=== PATIENT | female | born 1950 | race Caucasian/White ===

== ENCOUNTER 2018-01-15 06:12 | Outpatient (CLI) | payer OTHER ==
[~2018-01-15] VITALS: Ht 157.5 cm; Wt 113.4 kg
[2018-01-15] MEDS ORDERED: FLUO20CA42 PO (14:51)
[2018-01-15] MEDS ORDERED: LEVO100T7 PO (14:51)
== END 2018-01-15 14:52 ==
LOC: PREOP 06:12
PROVIDERS: ATTEND Surgery
DX: Z01.818 Encounter for other preprocedural examination (principal); R19.5 Other fecal abnormalities

== ENCOUNTER 2018-01-22 09:51 | Day surgery (SDC) | payer MEDICARE ==
[~2018-01-22] VITALS: Ht 157.5 cm; Wt 113.4 kg
[~2018-01-22 09:51] MED LIST: FLUO20CA42 PO; LEVO100T7 PO
--- OUTSIDE RECORDS SUMMARY | 2018-01-22 09:56 | XMS REPORT ---
Author Author PAIGE SWARTZ [facility] eClinicalWorks Address Unknown Phone Unavailable Care Team Providers Care Plant And Machinery Valuer Name Role Phone PAIGE SWARTZ CP Unavailable Allergies, Adverse Reactions, Alerts Substance Reaction Event Type N.K.D.A. 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 [address]-14 325 mg January 15, 2013 take 1 tablet ( 325 mg) by oral route once daily B Complex-Vitamin B12 NDC 0 Sep 03, 2012 1 Tablet 1 [place] [address] 1,000 mg Sep 03, 2012 1 Capsule 1 time per day levothyroxine ND 0 100 mcg Dec 05, 2014 1 tablet by Oral route 1 time per day Will need redrawn in January Procedures Procedure Coding System Code Date ZOSTER (ZOSTAVAX) CPT-4 97623 Aug 10, 2015 SINGLE IMMUNIZATION ADMIN CPT-4 62553 Aug 10, 2015 Office Visit, Est Pt., Level 3 CPT-4 69469 Aug 10, 2015 Vital Signs Date/Time: Aug 10, 2015 Temperature 97.4 F Weight 155.3 lbs Height 54 in BMI 37.44 Index Blood Pressure Diastolic 92 mmHg Blood Pressure Systolic 158 mmHg Cardiac Monitoring Heart Rate 80 bpm Results No Known Results Immunizations Vaccine Administration Date ZOSTER (ZOSTAVAX) Aug 10, 2015 Summary Purpose eClinicalWorks Submission
--- OUTSIDE RECORDS SUMMARY | 2018-01-22 09:56 | XMS REPORT ---
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 Problem Acquired hypothyroidism E03.9 Active 253690554 Problem Overweight 278.02 Active 036238710 ALLERGIES No Information SOCIAL HISTORY Never Assessed PLAN OF CARE VITAL SIGNS MEDICATIONS Unknown Medications RESULTS No Results PROCEDURES No Known procedures IMMUNIZATIONS No Known Immunizations MEDICAL (GENERAL) HISTORY Type Description Date Medical History Hypothryroidism Medical History Depression Surgical History hysterectomy Surgical History tumor removed from gland on left side of the neck Surgical History mini LAP Surgical History cyst removed from tailbone Hospitalization History surgeries Hospitalization History childbirth x 2
--- OUTSIDE RECORDS SUMMARY | 2018-01-22 09:56 | XMS REPORT ---
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 Problem Acquired hypothyroidism E03.9 Active Assessment Acquired hypothyroidism E03.9 Active Assessment Other iron deficiency anemia D50.8 Active Problem Overweight 278.02 Active Problem Dysthymic disorder 300.4 Active Medications No Known Medications Procedures Procedure Coding System Code Date COMPLETE CBC W/AUTO DIFF WBC CPT-4 93055 Dec 04, 2015 LIPID PANEL CPT-4 98590 Dec 04, 2015 ASSAY THYROID STIM HORMONE CPT-4 01430 Dec 04, 2015 VENIPUNCT, ROUTINE* CPT-4 15851 Dec 04, 2015 COMPREHEN METABOLIC PANEL CPT-4 84414 Dec 04, 2015 Results Name Result Date Reference Range Unit Abnormality Flag ROUTINE VENIPUNCTURE Summary Purpose eClinicalWorks Submission
--- OUTSIDE RECORDS SUMMARY | 2018-01-22 09:56 | XMS REPORT ---
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 Problem Left sciatic nerve pain M54.32 Active 12282009 Problem Dysthymia F34.1 Active 69131630 Problem Overweight 278.02 Active 762212972 Problem Dysthymic disorder 300.4 Active 41029154 Problem Other iron deficiency anemia D50.8 Active 81478405 Problem Acquired hypothyroidism E03.9 Active 149575646 ALLERGIES No Information ENCOUNTERS Encounter Location Date Diagnosis [facility] [id number] [place] [address] 58607- 8439 Nov, Acquired hypothyroidism E03.9 ; Encounter for immunization Z23 ; Other iron deficiency anemia D50.8 ; Colon cancer screening Z12.11 and Left sciatic nerve pain M54.32 [facility] [id number] [place] [address] 01640- 0844 Aug, Acquired hypothyroidism E03.9 [facility] [id number] [place] [address] 78414- 3347 May, Acquired hypothyroidism E03.9 [facility] [id number] [place] [address] 34501- 9428 May, Acquired hypothyroidism E03.9 [facility] [id number] [place] [address] 14776- 7589 Mar, Acquired hypothyroidism E03.9 [facility] [address] [place] [address] [id number] Mar, 2017 Dental examination Z01.20 and Dental caries K02.9 [facility] [address] [place] [address] 70926- 8577 Mar, Acquired hypothyroidism E03.9 [facility] [id number] [place] [address] 56348- 3740 Dec, [facility] [id number] [place] [address] 33905- 5128 Dec, Acquired hypothyroidism E03.9 [facility] [id number] [place] [address] 10790- 8158 Dec, Acquired hypothyroidism E03.9 [facility] [id number] [place] [address] 79047- 8413 Nov, [facility] [id number] [place] [address] 35168- 9256 Oct, Acquired hypothyroidism E03.9 [facility] [id number] [place] [address] 12969- 0639 Oct, Dysthymia F34.1 ; Acquired hypothyroidism E03.9 ; Other iron deficiency anemia D50.8 and Screening, lipid Z13.220 [facility] [id number] [place] [address] 89309- 5996 Jul, Breast cancer screening Z12.39 and Encounter for immunization Z23 [facility] [id number] [place] [address] 43971- 5066 Jun, Dysthymia F34.1 and Breast cancer screening Z12.39 [facility] [id number] [place] [address] 35780- 8600 May, Dysthymia F34.1 and Acquired hypothyroidism E03.9 [facility] [id number] [place] [address] 71304- 5477 May, [facility] [id number] [place] [address] 09681- 8802 Nov, [facility] [id number] [address]145 05 Nov, 2015 Acquired hypothyroidism E03.9 ; Other iron deficiency anemia D50.8 and Screening, lipid Z13.220 [facility] [address] [id number] Oct, Dental examination Z01.20 and Dental caries K02.9 [facility] [address] [place] [address] 27803- 1401 Oct, Acquired hypothyroidism E03.9 ; Other iron deficiency anemia D50.8 and Screening, lipid Z13.220 [facility] [id number] [place] [address] 39300- 6786 Jul, Breast cancer screening Z12.39 and Need for shingles vaccine Z23 [facility] [address] [place] [address] 85013- 2804 Jan, [facility] [id number] [place] [address] 61664- 1937 Jan, [facility] [address] [place] [address] 65305- 9791 Nov, [facility] [address] [place] [address] 17567- 8992 Nov, [facility] [address] [address] 5659 Oct, [facility] [address] [place] [address] 39413- 6511 Oct, [facility] [address] [place] [address] 66331- 6374 Oct, [facility] [id number] [place] [address] 41137- 7574 Oct, [facility] [address] [address] Sep, [facility] [id number] [place] [address] 03932- 8107 Sep, [facility] [place] [facility] [address] [id number] [place] [address]- 6283 Sep, [facility] [place] [facility] [address] [id number] [place] [address]- 0723 Sep, [facility] [place] [facility] [address] [facility] [id number] [place] [address]- 9678 Sep, [facility] [place] [facility] [address] [id number] [place] [address]- 4506 Sep, [facility] [place] [facility] [address] [id number] [place] [address]- 7850 Aug, [facility] [place] [facility] [address] [id number] [place] [address]- 6013 Aug, [facility] [place] [facility] [address] [facility] [id number] [place] [address]- 0571 Jun, [facility] [place] [facility] [address] [id number] [place] [address]- 2387 Jun, [facility] [place] [facility] [address] [facility] [id number] [place] [address]- 1273 May, [facility] [place] [facility] [address] [facility] [id number] [place] [address]- 4000 May, [facility] [place] [facility] [address] [id number] [place] [address]- 6950 Apr, [facility] [place] [facility] [address] [id number] [place] [address]- 8272 Apr, [facility] [place] [facility] [address] [id number] [place] [address]- 4123 Apr, [facility] [place] [facility] [address] [id number] [place] [address]- 4609 Apr, [facility] [place] [facility] [address] [facility] [id number] [place] [address]- 6083 Mar, [facility] [place] [facility] [address] [id number] [place] [address]- 3118 Mar, [facility] [place] [facility] [address] [id number] [place] [address]- 2679 Jan, [facility] [place] [facility] [address] [id number] [place] [address]- 5434 Jan, [facility] [place] [facility] [address] [id number] [place] [address]- 3213 Jan, [facility] [place] [facility] [address] [id number] [place] [address]- 1777 Jan, [facility] [place] [facility] [address] [id number] [place] [address]- 4410 Jan, [facility] [place] [facility] [address] [id number] [place] [address]- 7802 Jan, [facility] [place] [facility] [address] [id number] [place] [address]- 3338 Dec, [facility] [place] [facility] [address] [id number] [place] [address]- 4407 Dec, [facility] [place] [facility] [address] [id number] [place] [address]- 3938 Sep, [facility] [place] [facility] [address] [id number] [place] [address]- 1226 Sep, [facility] [place] [facility] [address] [id number] [place] [address]- 5655 Aug, [facility] [place] [facility] [address] [id number] [place] [address]- 8326 Aug, [facility] [place] [facility] [address] [id number] [place] [address]- 1552 Aug, [facility] [place] [facility] [address] [id number] [place] [address]- 7037 Aug, [facility] [place] [facility] [address] [id number] [place] [address]- 6157 May, [facility] [place] [facility] [address] [id number] [place] [address]- 7966 Apr, [facility] [place] [facility] [address] [id number] [place] [address]- 6715 Apr, [facility] [place] [facility] [address] [id number] [place] [address]- 4789 Apr, [facility] [place] [facility] [address] [id number] [place] [address]- 8747 Dec, [facility] [place] [facility] [address] [id number] [place] [address]- 4091 Dec, [facility] [place] [facility] [address] [id number] [place] [address]- 9222 Oct, [facility] [place] [facility] [address] [id number] [place] [address]- 2651 Sep, [facility] [place] [facility] [address] [id number] [place] [address]- 4946 Sep, [facility] [place] [facility] [address] [id number] [place] [address]- 1234 Sep, [facility] [place] [facility] [address] [id number] [place] [address]- 5873 Sep, [facility] [place] [facility] [address] [id number] [place] [address]- 7233 Aug, [facility] [place] [facility] [address] [id number] [address]- 9450 Aug, [facility] [place] [facility] [address] [id number] [place] [address]- 0094 Aug, [facility] [place] [facility] [address] [id number] [place] [address]- 9779 Aug, [facility] [place] [facility] [address] [id number] [place] [address]- 6496 Jul, [facility] [place] [facility] [address] [address]- 6560 Jul, [facility] [address] [address]- 4761 Jul, [facility] [address] [address]- 4696 Jul, [facility] [address] [place] [address]- 7902 Jul, [facility] [address] [address]- 9128 Jun, [facility] [address] [place] [address] 44250- 6227 Mar, [facility] [id number] [place] [address] 81075- 5956 Mar, [facility] [address] [place] [address] 61764- 3680 Jan, [facility] [address], [place] [address]- 6424 Jan, [facility] [id number] [place] [address] 48700- 3726 Nov, [facility] [address] [address]- 0029 Nov, [facility] [address] [address]- 3616 Nov, [facility] [address] [place] [address]- 4957 Dec, IMMUNIZATIONS No Known Immunizations SOCIAL HISTORY Never Assessed REASON FOR VISIT Lab (walk-in) [facility] PLAN OF CARE VITAL SIGNS MEDICATIONS No Known Medications RESULTS Name Result Date Reference Range TSH 2017-04-07 TSH 13.200 0.450-4.500 PROCEDURES Procedure Date Ordered Result Body Site ASSAY THYROID STIM HORMONE April 07, 2017 VENIPUNCT, ROUTINE* April 07, 2017 INSTRUCTIONS MEDICATIONS ADMINISTERED No Known Medications MEDICAL (GENERAL) HISTORY Type Description Date Medical History Hypothryroidism Medical History Depression Surgical History hysterectomy Surgical History tumor removed from gland on left side of the neck Surgical History mini LAP Surgical History cyst removed from tailbone Hospitalization History surgeries Hospitalization History childbirth x 2
--- OUTSIDE RECORDS SUMMARY | 2018-01-22 09:56 | XMS REPORT ---
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
--- OUTSIDE RECORDS SUMMARY | 2018-01-22 09:56 | XMS REPORT ---
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 Unknown Non Drug Allergy Oct, Unknown SOCIAL HISTORY No smoking Hx information available PLAN OF CARE Activity Details Follow Up 1 Year Reason:mammogram VITAL SIGNS Height 54 in 2016-11-07 Weight 155.8 lbs 2016-11-07 Temperature 98.0 degrees Fahrenheit 2016-11-07 Heart Rate 66 bpm 2016-11-07 Respiratory Rate 20 2016-11-07 BMI 37.56 kg/m2 2016-11-07 Blood pressure systolic 130 mmHg 2016-11-07 Blood pressure diastolic 72 mmHg 2016-11-07 MEDICATIONS Medication Instructions Dosage Frequency Start Date End Date Duration Status Garlic 1,000 mg 1 Capsule 1 time per day Aug, Active Fish Oil Active Aspirin 325 mg take 1 tablet (325 mg) by oral route once daily Dec, Active Levothyroxine Sodium 100 MCG Orally Once a day 1 tablet 24h Nov, Active B Complex-Vitamin B12 1 Tablet 1 time per day Aug, Active Iron 325 (65 Fe) MG Orally Once a day 1 tablet 24h Active Prozac 20 mg Orally Once a day 1 capsule in the morning 24h May, Active Calcium + D 315-200 MG-UNIT Orally Twice a day 1 tablet with meals 12h Active RESULTS Name Result Date Reference Range TSH 2016-11-07 TSH 0.384 0.450-4.500 CBC 2016-11-07 WBC 4.7 3.4-10.8 RBC 4.66 3.77-5.28 Hemoglobin 14.1 11.1-15.9 Hematocrit 42.9 34.0-46.6 MCV 92 79-97 MCH 30.3 26.6-33.0 MCHC 32.9 31.5-35.7 RDW 14.0 12.3-15.4 Platelets 235 150-379 Neutrophils 58 Lymphs 32 Monocytes 8 Eos 2 Basos 0 Neutrophils (Absolute) 2.7 1.4-7.0 Lymphs (Absolute) 1.5 0.7-3.1 Monocytes(Absolute) 0.4 0.1-0.9 Eos (Absolute) 0.1 0.0-0.4 Baso (Absolute) 0.0 0.0-0.2 Immature Granulocytes 0 Immature Grans (Abs) 0.0 0.0-0.1 LIPID PANEL 2016-11-07 Cholesterol, Total 191 100-199 Triglycerides 91 0-149 HDL Cholesterol 59 >39 VLDL Cholesterol Devante 18 5-40 LDL Cholesterol Calc 114 0-99 CMP 2016-11-07 Glucose, Serum 102 65-99 BUN 11 8-27 Creatinine, Serum 0.57 0.57-1.00 eGFR If NonAfricn Am 99 >59 eGFR If Africn Am 114 >59 BUN/Creatinine Ratio 19 11-26 Sodium, Serum 140 134-144 Potassium, Serum 4.7 3.5-5.2 Chloride, Serum 100 96-106 Carbon Dioxide, Total 23 18-29 Calcium, Serum 9.3 8.7-10.3 Protein, Total, Serum 6.5 6.0-8.5 Albumin, Serum 4.2 3.6-4.8 Globulin, Total 2.3 1.5-4.5 A/G Ratio 1.8 1.1-2.5 Bilirubin, Total 0.2 0.0-1.2 Alkaline Phosphatase, S 59 39-117 AST (SGOT) 14 0-40 ALT (SGPT) 10 0-32 PROCEDURES Procedure Date Ordered Related Diagnosis Body Site ASSAY THYROID STIM HORMONE Nov 07, 2016 COMPLETE CBC W/AUTO DIFF WBC Nov 07, 2016 LIPID PANEL Nov 07, 2016 COMPREHEN METABOLIC PANEL Nov 07, 2016 Office Visit, Est Pt., Level 3 Nov 07, 2016 VENIPUNCT, ROUTINE* Nov 07, 2016 IMMUNIZATIONS No Known Immunizations
--- OUTSIDE RECORDS SUMMARY | 2018-01-22 09:56 | XMS REPORT ---
Author Author PAIGE SWARTZ [facility] eClinicalWorks Address Unknown Phone Unavailable Care Team Providers Care Manager Post Name Role Phone PAIGE SWARTZ CP Unavailable Allergies, Adverse Reactions, Alerts Substance Reaction Event Type N.K.D.A. 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 Problem Acquired hypothyroidism E03.9 Active Assessment Dysthymia F34.1 Active Assessment Breast cancer screening Z12.39 Active Problem Overweight 278.02 Active Problem Dysthymic disorder 300.4 Active Medications Medication Code System Code Instructions Start Date End Date Status Dosage B Complex-Vitamin B12 [facility] 0 Sep 03, 2012 1 Tablet 1 time per day Garlic [facility] [address] 1,000 mg Sep 03, 2012 1 Capsule 1 time per day Prozac [facility] [address]-64 20 mg Orally Once a day Jun 20, 2016 1 capsule in the morning Iron [facility] [address] 325 (65 Fe) MG Orally Once a day 1 tablet Calcium + D [facility] [address]472 315-200 MG-UNIT Orally Twice a day 1 tablet with meals Levothyroxine Sodium [facility] [address]-37 100 MCG Orally Once a day Dec 08, 2015 1 tablet Aspirin [facility] [address]-39 325 mg January 15, 2013 take 1 tablet ( 325 mg) by oral route once daily Fish Oil [facility] [address]-60 not defined Procedures Procedure Coding System Code Date Office Visit, Est Pt., Level 3 CPT-4 73041 Jul 21, 2016 Vital Signs Date/Time: Jul 21, 2016 Cardiac Monitoring Heart Rate 72 bpm Weight 156.2 lbs Height 54 in BMI 37.66 Index Blood Pressure Diastolic 70 mmHg Blood Pressure Systolic 140 mmHg Results No Known Results Summary Purpose eClinicalWorks Submission
--- OUTSIDE RECORDS SUMMARY | 2018-01-22 09:56 | XMS REPORT ---
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 Problem Acquired hypothyroidism E03.9 Active 312959925 Problem Overweight 278.02 Active 068857155 ALLERGIES No Information SOCIAL HISTORY Never Assessed PLAN OF CARE VITAL SIGNS MEDICATIONS Unknown Medications RESULTS Name Result Date Reference Range TSH 2017-01-02 TSH 5.020 0.450-4.500 PROCEDURES Procedure Date Ordered Result Body Site ASSAY THYROID STIM HORMONE January 02, 2017 VENIPUNCT, ROUTINE* January 02, 2017 IMMUNIZATIONS No Known Immunizations MEDICAL (GENERAL) HISTORY Type Description Date Medical History Hypothryroidism Medical History Depression Surgical History hysterectomy Surgical History tumor removed from gland on left side of the neck Surgical History mini LAP Surgical History cyst removed from tailbone Hospitalization History surgeries Hospitalization History childbirth x 2
--- OUTSIDE RECORDS SUMMARY | 2018-01-22 09:57 | XMS REPORT ---
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 Problem Left sciatic nerve pain M54.32 Active 93641692 Problem Dysthymia F34.1 Active 04113549 Problem Overweight 278.02 Active 658132738 Problem Dysthymic disorder 300.4 Active 66296911 Problem Other iron deficiency anemia D50.8 Active 46445631 Problem Acquired hypothyroidism E03.9 Active 235661637 ALLERGIES No Known Allergies ENCOUNTERS Encounter Location Date Diagnosis [facility] [address] [address] 05 Nov, 2017 Acquired hypothyroidism E03.9 ; Encounter for immunization Z23 ; Other iron deficiency anemia D50.8 ; Colon cancer screening Z12.11 and Left sciatic nerve pain M54.32 [facility] [id number] [place] [address] Aug, Acquired hypothyroidism E03.9 [facility] [id number] [place] [address]65[address]- 9529 May, Acquired hypothyroidism E03.9 [facility] [id number] [place] [address] 80357- 5283 May, Acquired hypothyroidism E03.9 [facility] [address] [address] Mar, Acquired hypothyroidism E03.9 [facility] [id number] [place] [id number] Mar, 2017 Dental examination Z01.20 and Dental caries K02.9 [facility] [id number] [place] [address]- 0818 Mar, Acquired hypothyroidism E03.9 [facility] [id number] [place] [address] 17839- 2471 Dec, [facility] [id number] [place] [address]- 2610 Dec, Acquired hypothyroidism E03.9 [facility] [id number] [place] [address] 63984- 3815 Dec, Acquired hypothyroidism E03.9 [facility] [id number] [place] [address] 89923- 4693 Nov, [facility] [id number] [place] [address] 33386- 7011 Oct, Acquired hypothyroidism E03.9 [place] [facility] [id number] [place] [address]7- 4875 Oct, Dysthymia F34.1 ; Acquired hypothyroidism E03.9 ; Other iron deficiency anemia D50.8 and Screening, lipid Z13.220 [facility] [facility] [id number] [place] [address] 84784- 5754 Jul, Breast cancer screening Z12.39 and Encounter for immunization Z23 [facility] [facility] [id number] [place] [address] 44077- 5537 Jun, Dysthymia F34.1 and Breast cancer screening Z12.39 [facility] [facility] [id number] [place] [address] 56414- 3280 May, Dysthymia F34.1 and Acquired hypothyroidism E03.9 [facility] [facility] [id number] [place] [address] 20729- 6445 May, [facility] [id number] [place] [address] 12570- 9276 Nov, [facility] [id number] [place] [address] 97192- 5399 05 Nov, 2015 Acquired hypothyroidism E03.9 ; Other iron deficiency anemia D50.8 and Screening, lipid Z13.220 [facility] [address] [id number] Oct, Dental examination Z01.20 and Dental caries K02.9 [facility] [address] [address] Oct, Acquired hypothyroidism E03.9 ; Other iron deficiency anemia D50.8 and Screening, lipid Z13.220 [facility] [id number] [place] [address] 28878- 8685 Jul, Breast cancer screening Z12.39 and Need for shingles vaccine Z23 [facility] [address] [place] [address] 77200- 9641 Jan, [facility] [id number] [place] [address] 77805- 6381 Jan, [facility] [address] [place] [address] 31851- 2613 Nov, [facility] [address] [place] [address] 35644- 0561 Nov, [facility] [address] [address] Oct, [facility] [id number] [place] [address] 60092- 7798 Oct, [facility] [address] [place] [address] 17700- 9700 Oct, [facility] [address] [place] [address] 74355- 6695 Oct, [facility] [address] [address] Sep, [facility] [address] [place] [address] [id number]- 2675 Sep, [facility] [place] [facility] [address] [id number] [place] [address] 0147 Sep, [facility] [place] [facility] [address] [id number] [place] [address]- 6402 Sep, [facility] [place] [facility] [address] [id number] [place] [address]- 7213 Sep, [facility] [place] [facility] [address] [id number] [place] [address]- 5997 Sep, [facility] [place] [facility] [address] [id number] [place] [address]- 9701 Aug, [facility] [place] [facility] [address] [id number] [place] [address]- 3175 Aug, [facility] [place] [facility] [address] [id number] [place] [address]- 4624 Jun, [facility] [place] [facility] [address] [id number] [place] [address]- 9033 Jun, [facility] [place] [facility] [address] [id number] [place] [address]- 4696 May, [facility] [place] [facility] [address] [id number] [place] [address] 1960 May, [facility] [place] [facility] [address] [id number] [place] [address]- 0644 Apr, [facility] [place] [facility] [address] [id number] [place] [address]- 0701 Apr, [facility] [place] [facility] [address] [id number] [place] [address]- 9291 Apr, [facility] [place] [facility] [address] [id number] [place] [address]- 5057 Apr, [facility] [place] [facility] [address] [id number] [place] [address]- 8413 Mar, [facility] [place] [facility] [address] [id number] [place] [address]- 2346 Mar, [facility] [place] [facility] [address] [id number] [place] [address]- 9943 Jan, [facility] [place] [facility] [address] [id number] [place] [address]- 1066 Jan, [facility] [place] [facility] [address] [id number] [place] [address]- 5350 Jan, [facility] [place] [facility] [address] [id number] [place] [address]- 9776 Jan, [facility] [place] [facility] [address] [id number] [place] [address]- 2315 Jan, [facility] [place] [facility] [address] [id number] [place] [address]- 2335 Jan, [facility] [place] [facility] [address] [id number] [place] [address]- 2965 Dec, [facility] [place] [facility] [address] [id number] [place] [address]- 8707 Dec, [facility] [place] [facility] [address] [id number] [place] [address]- 5782 Sep, [facility] [place] [facility] [address] [id number] [place] [address]- 9667 Sep, [facility] [place] [facility] [address] [id number] [place] [address]- 5680 Aug, [facility] [place] [facility] [address] [id number] [place] [address]- 0239 Aug, [facility] [place] [facility] [address] [id number] [place] [address]- 3337 Aug, [facility] [place] [facility] [address] [id number] [place] [address]- 2395 Aug, [facility] [place] [facility] [address] [id number] [place] [address]- 3079 May, [facility] [place] [facility] [address] [id number] [place] [address]- 4214 Apr, [facility] [address] [id number] [place] [address]- 0345 Apr, [facility] [address] [id number] [place] [address]- 2633 Apr, [facility] [address] [id number] [place] [address]- 4109 Dec, [facility] [address] [id number] [place] [address]- 3423 Dec, [facility] [address] [id number] [place] [address]- 1281 Oct, [facility] [address] [id number] [place] [address]- 1876 Sep, [facility] [address] [id number] [place] [address]- 6170 Sep, [facility] [address] [id number] [place] [address]- 5426 Sep, [facility] [address] [id number] [place] [address]- 0937 Sep, [facility] [address] [facility] [id number] [place] [address]- 9189 Aug, [facility] [place] [facility] [address] [id number] [place] [address]- 1060 Aug, [facility] [address] [id number] [place] [address]- 5097 Aug, [facility] [place] [facility] [address] [id number] [place] [address]- 7909 Aug, [facility] [place] [facility] [address] [id number] [place] [address]- 7841 Jul, [facility] [place] [facility] [address] [id number] [place] [address]- 8404 Jul, [facility] [id number] [address] Jul, [facility] [address] Jul, [facility] [id number] [address]- 8339 Jul, [facility] [address] [address]- 1354 Jun, [facility] [address] [address] 5397 Mar, [facility] [address] [address]- 4886 Mar, [facility] [address] [address]- 5[address] Jan, [facility] [address] [address]- 6085 Jan, [facility] [address] [address]- 2451 Nov, [facility] [address] [address]- 5842 Nov, [facility] [address] [address]- 3606 Nov, [facility] [id number] [address]- 2342 Dec, IMMUNIZATIONS No Known Immunizations SOCIAL HISTORY Never Assessed REASON FOR VISIT [place] PLAN OF CARE Activity Details Follow Up prn Reason:jorge luis VITAL SIGNS Blood pressure systolic 142 mmHg 2017-04-07 Blood pressure diastolic 67 mmHg 2017-04-07 MEDICATIONS Medication Instructions Dosage Frequency Start Date End Date Duration Status B Complex-Vitamin B12 1 Tablet 1 time per day Aug, Active Garlic 1,000 mg 1 Capsule 1 time per day Aug, Active Aspirin 325 mg take 1 tablet (325 mg) by oral route once daily Dec, Active Calcium + D 315-200 MG-UNIT Orally Twice a day 1 tablet with meals 12h Active Fluoxetine HCl 20 MG TAKE ONE CAPSULE BY MOUTH ONCE DAILY IN THE MORNING 90 Active Levothyroxine Sodium 75 MCG Orally Once a day 1 tablet 24h Nov, 90 days Active Iron 325 (65 Fe) MG Orally Once a day 1 tablet 24h Active Fish Oil Active Prozac 20 mg Orally Once a day 1 capsule in the morning 24h May, Active RESULTS No Results PROCEDURES Procedure Date Ordered Result Body Site LTD ORAL EVALUATION - PROBLEM FOCUS April 07, 2017 INTRAORL-PERIAPICAL 1 FILM 87484 April 07, 2017 EXTRAC ERUPTED TOOTH/EXPOSED ROOT April 07, 2017 BITEWING - SINGLE FILM April 07, 2017 INSTRUCTIONS MEDICATIONS ADMINISTERED No Known Medications MEDICAL (GENERAL) HISTORY Type Description Date Medical History Hypothryroidism Medical History Depression Surgical History hysterectomy Surgical History tumor removed from gland on left side of the neck Surgical History mini LAP Surgical History cyst removed from tailbone Hospitalization History surgeries Hospitalization History childbirth x 2
--- OUTSIDE RECORDS SUMMARY | 2018-01-22 09:57 | XMS REPORT ---
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 Unknown Non Drug Allergy May, Unknown SOCIAL HISTORY No smoking Hx information available PLAN OF CARE VITAL SIGNS Height 54 in 2016-06-20 Weight 156.9 lbs 2016-06-20 Heart Rate 70 bpm 2016-06-20 Respiratory Rate 18 2016-06-20 BMI 37.83 kg/m2 2016-06-20 Blood pressure systolic 130 mmHg 2016-06-20 Blood pressure diastolic 80 mmHg 2016-06-20 MEDICATIONS Medication Instructions Dosage Frequency Start Date End Date Duration Status Prozac 20 mg Orally Once a day 1 capsule in the morning 24h May, Active B Complex-Vitamin B12 1 Tablet 1 time per day Aug, Active Levothyroxine Sodium 100 MCG Orally Once a day 1 tablet 24h Nov, Active Garlic 1,000 mg 1 Capsule 1 time per day Aug, Active Aspirin 325 mg take 1 tablet (325 mg) by oral route once daily Dec, Active Iron 325 (65 Fe) MG Orally Once a day 1 tablet 24h Active Fish Oil Active RESULTS No Results PROCEDURES Procedure Date Ordered Related Diagnosis Body Site Office Visit, Est Pt., Level 3 Jun 20, 2016 IMMUNIZATIONS No Known Immunizations
--- OUTSIDE RECORDS SUMMARY | 2018-01-22 09:57 | XMS REPORT ---
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
--- OUTSIDE RECORDS SUMMARY | 2018-01-22 09:57 | XMS REPORT ---
Author Author PAIGE SWARTZ [facility] [employer] Address Unknown Phone Unavailable Care Team Providers Care Motorcycle Police Name Role Phone PAIGE SWARTZ CP Unavailable Allergies, Adverse Reactions, Alerts Substance Reaction Event Type N.K.D.A. 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 Problem Acquired hypothyroidism E03.9 Active Assessment Breast cancer screening Z12.39 Active Assessment Encounter for immunization Z23 Active Problem Overweight 278.02 Active Problem Dysthymic disorder 300.4 Active Medications Medication Code System Code Instructions Start Date End Date Status Dosage Prozac [facility] [address]-47 20 mg Orally Once a day Jun 20, 2016 1 capsule in the morning Aspirin [facility] [address]-48 325 mg January 15, 2013 take 1 tablet ( 325 mg) by oral route once daily Levothyroxine Sodium [facility] [address]-46 100 MCG Orally Once a day Dec 08, 2015 1 tablet Calcium + D [facility] [address]179 315-200 MG-UNIT Orally Twice a day 1 tablet with meals Fish Oil [facility] [address]-08 not defined B Complex-Vitamin B12 [facility] 0 Sep 03, 2012 1 Tablet 1 time per day Garlic [facility] [address] 1,000 mg Sep 03, 2012 1 Capsule 1 time per day Procedures Procedure Coding System Code Date PCV 13 CPT-4 54026 Aug 15, 2016 SINGLE IMMUNIZATION ADMIN CPT-4 69001 Aug 15, 2016 Office Visit, Est Pt., Level 3 CPT-4 94242 Aug 15, 2016 Vital Signs Date/Time: Aug 15, 2016 Cardiac Monitoring Heart Rate 70 bpm Weight 154.1 lbs Height 54 in BMI 37.15 Index Blood Pressure Diastolic 74 mmHg Blood Pressure Systolic 136 mmHg Results Name Result Date Reference Range Unit Abnormality Flag Mammogram, Bilateral Screening Immunizations Vaccine Administration Date PCV 13 Aug 15, 2016 Summary Purpose eClinicalWorks Submission
--- OUTSIDE RECORDS SUMMARY | 2018-01-22 09:57 | XMS REPORT ---
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
[2018-01-22] MEDS ORDERED: NS IV 500 ML 500 ML IV ONE (10:15)
[2018-01-22 10:40] VITALS: BP 135/61
--- NOTE | 2018-01-22 11:56 | History & Physicial ---
History of Present Illness History of Present Illness Reason for visit/HPI to undergo colonoscopy in view of positive Cologuard test Date of Admission 01/22/18 Date Seen by Provider: Jan 22, 2018 Time Seen by Provider: 11:53 I consulted on this patient on 01/22/18 11:51 Attending Physician Bren Clark MD Admitting Physician Ivy Haro DO Consult Allergies and Home Medications Allergies Coded Allergies: No Known Drug Allergies (Unverified , 01/15/18) Home Medications Fluoxetine HCl 20 Mg Capsule, 20 MG PO DAILY, (Reported) Levothyroxine Sodium 100 Mcg Tablet, 100 MCG PO DAILY, (Reported) Patient Home Medication List Home Medication List Reviewed: Yes Past Ukrtccp-Igzoti-Imxfns Hx Patient Social History Marrital Status: Employed/Student: retired Type Used: Cigarettes Recent Foreign Travel: No Contact w/other who traveled: No Recent Hopitalizations: No Immunizations Up To Date Date of Influenza Vaccine: Jul 30, 2017 Seasonal Allergies Seasonal Allergies: No Surgeries Yes Hysterectomy Respiratory No Cardiovascular No Reproductive System 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 INSTRUCTOR History: Hysterectomy Endocrine History of Endocrine Disorders: Yes Endocrine Disorders: Hypothyroidsim Constitutional: no symptoms reported EENTM: no symptoms reported Respiratory: no symptoms reported Cardiovascular: no symptoms reported Gastrointestinal: no symptoms reported Genitourinary: no symptoms reported Musculoskeletal: no symptoms reported Skin: no symptoms reported Psychiatric/Neurological: No Symptoms Reported Physical Exam Vital Signs Capillary Refill : General Appearance: No Apparent Distress Neck: Normal Inspection Respiratory: Lungs Clear Cardiovascular: Regular Rate, Rhythm Gastrointestinal: Non Tender, Soft Rectal: Deferred Extremity: Normal Inspection Neurologic/Psychiatric: Alert, Oriented x3 Skin: Warm/Dry Assessment/Plan Assessment and Plan Lady with a positive cologuard test. For colonoscopy Problems: Admission Diagnosis Admission Status: Other (Outpt Proc) BREN CLARK MD Jan 22, 2018 11:56 am
--- NOTE | 2018-01-22 11:57 | Conscious Sedation/ASA ---
Conscious Sedation Pre-Proced Time Reviewed: 11:57 ASA Class: 2 Airway Mallampati Classification: ([place] appropriate class) I. II. III, IV Lungs Heart ASA score ASA 1: a normal healthy patient ASA 2: a patient with a mild systemic disease (mid diabetes, controlled hypertension, obesity ASA 3: a patient with a severe systemic disease that limits activity (angina , COPD, prior Myocardial infarction) ASA 4: a patient with an incapacitating disease that is a constant threat to life (CHF, renal failure) ASA 5: a moribund patient not expected to survive 24 hrs. (ruptured aneurysm) ASA 6: a declared brain patient whose organs are being harvested. For emergent operations, add the letter E after the classification Grade 1 Sedation Plan: Discussed options with patient/fam Note The patient is an appropriate candidate to undergo the planned procedure, sedation, and anesthesia. The patient immediately re-assessed prior to indication. BREN CLARK MD Jan 22, 2018 11:57 am
[2018-01-22] MEDS ORDERED: MIDAZOLAM 2 MG/2 ML (VERSED) VIAL ONE ×3 (11:58→11:59)
[2018-01-22] MEDS ORDERED: fentaNYL INJECTION 100 MCG/2 ML AMP ONE (11:59)
[2018-01-22] MEDS: fentaNYL INJECTION 100 MCG/2 ML AMP IVP PRN ×2 (12:23→12:32)
[2018-01-22] MEDS: MIDAZOLAM 2 MG/2 ML (VERSED) VIAL IVP PRN ×2 (12:25→12:30)
--- NOTE | 2018-01-22 12:41 | Endo Procedure Record ---
Endo Procedure Report Date of Procedure Last Colonoscopy: Yes (unsure) Jan 22, 2018 Surgeon (s) BREN CLARK MD Post Procedure/Op Diagnosis Very few sigmoid diverticula. No polyps Procedure Performed Colonoscopy to cecum Description of Procedure Anesthesia Type: Conscious Sedation Specimen(s) collected/removed none Description of the Procedure Indication for the procedure: This lady was found to have a positive Cologuard test. She came in for colonoscopy. She denied any family history of colon cancer. Informed consent was obtained after reviewing the procedure in detail. Description of procedure: She was placed in left lateral decubitus position and her vital signs were monitored. Conscious sedation was achieved using Versed and fentanyl. Digital rectal examination was unremarkable. The colonoscope was then introduced in the rectum and advanced all the cecum. The scope was then withdrawn slowly and the mucosa examined in a systematic fashion. Findings: Very few sigmoid diverticula. No polyps were found she tolerated the procedure well and is nursing area in a stable condition. Impression: Positive [place] guard test. No polyps. Copies To: MIRYAM JUAREZ XAVIER M MD Jan 22, 2018 12:41 pm
--- NOTE | 2018-01-22 12:43 | Discharge Inst-Simple/Standard ---
Discharge Inst-Standard Discharge Medications New, Converted or Re-Newed RX: Other Patient Instructions/Follow Up Plan of Care/Instructions/FU: Follow-up with her primary Activity as Tolerated: Yes Discharge Diet: No Restrictions BREN CLARK MD Jan 22, 2018 12:43 pm
[2018-01-22 12:55] VITALS: BP 105/51
[2018-01-22 13:25] VITALS: BP 146/69
[2018-01-22 13:40] VITALS: BP 146/69
== END 2018-01-22 13:45 | disposition home or self-care (01) ==
LOC: ENDO 09:51
PROVIDERS: ATTEND Surgery
DX: K57.30 Diverticulosis of large intestine without perforation or abscess without bleeding (principal); R19.5 Other fecal abnormalities; F17.210 Nicotine dependence, cigarettes, uncomplicated

== ENCOUNTER → 2018-07-30 | Outpatient (CLI) | payer MEDICARE ==
--- NOTE | 2018-07-30 11:29 | Diagnostic Imaging Report ---
TECHNIQUE: 2D and 3D bilateral screening mammography was performed with CAD. 3D tomosynthesis was also performed and reviewed. INDICATION: Routine screening. COMPARISON: 08/29/2016 and 08/21/2015. FINDINGS: Scattered fibroglandular densities are identified bilaterally. There are scattered benign-appearing calcifications bilaterally. The nodularity in the medial right breast at mid depth appears stable. No new mass or malignant appearing microcalcifications are seen. The axillae are unremarkable. IMPRESSION: No mammographic features suspicious for malignancy are identified. ACR BI-RADS Category 2: Benign findings. Result letter will be mailed to the patient. Note: At least 10% of breast cancer is not imaged by mammography. Dictated by: Dictated on workstation # [id number]
== END ==
LOC: RAD 07:01
PROVIDERS: ATTEND Nurse Practitioner Community Health
DX: Z12.31 Encounter for screening mammogram for malignant neoplasm of breast (principal)
CPT/HCPCS: 77067

== ENCOUNTER → 2019-06-11 | Outpatient (CLI) | payer MEDICARE ==
--- NOTE | 2019-06-11 14:31 | Diagnostic Imaging Report ---
INDICATION: History of tobacco use with a 48 pack year history. Current tobacco use. TECHNIQUE: Noncontrast, low-dose CT imaging performed according to lung cancer screening protocol. COMPARISON: None FINDINGS: HEART/MEDIASTINUM: Heart size normal. Moderate severity coronary artery calcification particularly in the region of the LAD. Thoracic aortic contour unremarkable. Calcified lymph nodes through the mediastinum. LUNGS/MEASURED PULMONARY NODULES: Lung espinal are clear of infiltrate. There are a few scattered calcified granulomas present. There is mild central peribronchial thickening. Minimal wispy groundglass opacities somewhat triangular shaped appearance, subpleural region anterior left upper lobe as well as left lower lobe posteriorly. Image 78, series 2, small, rounded solid nodule centrally right upper lobe 3 mm in size. OTHER: None. IMPRESSION: 1. Small 3 mm right upper lobe pulmonary nodule at baseline assessment. Calcified granulomas compatible with prior granulomatous disease. 2. Coronary artery calcification. LUNG-RADS CATEGORY: 2A-S LUNG SCREENING MANAGEMENT/RECOMMENDATIONS: Continued annual screening with low dose CT in 12 months. Notes: Lung rads category 1 or 2 does not mean that an individual does not have lung cancer or other active disease process, but rather nothing is identified to meet criteria for current lung pathology. Therefore, continued annual lung cancer screening should be performed. Please note that this is a low dose CT examination, intended for lung cancer screening of high risk patients. As a technical result, the examination is limited in diagnostic quality compared to a conventional CT examination of the chest. Dictated by: Dictated on workstation # [id number]
--- NOTE | 2019-06-11 15:30 | Diagnostic Imaging Report ---
INDICATION: Postmenopausal state, screening for osteoporosis. COMPARISON: None available. FINDINGS: AP Spine L1-L4: [BMD (g/cm2): 1.149] [T-Score: -.04] [Z-Score: 0.8] [BMD Previous: na] [BMD % Change: na] LT Hip Neck: [BMD (g/cm2): 0.834] [T-Score: -1.5] [Z-Score: -0.2] LT Hip Total: [BMD (g/cm2):0.951] [T-Score:-0.4] [Z-Score: 0.5] [BMD Previous: na] [BMD % Change: na] RT Hip Neck: [BMD (g/cm2):0.850] [T-Score:-1.3] [Z-Score:-0.1] RT Hip Total: [BMD (g/cm2):0.970] [T-score:-0.4] [Z-Score:0.5] [BMD Previous:na] [BMD % Change:na] *Indicates significant change from prior examination based on 95% confidence level. World Health Organization criteria for BMD interpretation classify patients as Normal (T-score at or above -1.0), Osteopenic (T-score between -1.0 and -2.5) or Osteoporotic (T-score at or below -2.5). LIMITATIONS AND MODIFICATION: None. FRACTURE RISK (FRAX SCORE): The ten year probability of (%): Major Osteoporotic Fracture: [8.8] Hip Fracture: [1.5] IMPRESSION: 1. Osteopenia (Low bone mass). 2. Baseline examination. 3. See below National Osteoporosis Foundation guidelines on when to potentially initiate pharmacologic therapy. Based on the National Osteoporosis Foundation Guidelines, pharmacologic treatment should be initiated in any of the following, unless clinical conditions suggest otherwise: * Any patient with prior fragility fracture of the hip or vertebrae. A spine fracture indicates 5X risk for subsequent spine fracture and 2X risk for subsequent hip fracture. * Osteoporosis (T-score <-2.5). * Postmenopausal women and men age 50 and older with low bone mass/osteopenia (T-score between -1.0 and -2.5) by DXA and 10-year major osteoporotic fracture greater than 20% or a 10-year probability of hip fracture greater than 3%. These fracture risks are supplied above in the FRAX score, if applicable. * Clinician judgment and/or patient preferences may indicate treatment for people with 10-year fracture probabilities above or below these levels. Dictated by: Dictated on workstation # [id number]
== END ==
LOC: RAD 11:17
PROVIDERS: ATTEND Nurse Practitioner Community Health
DX: Z12.2 Encounter for screening for malignant neoplasm of respiratory organs (principal); Z13.820 Encounter for screening for osteoporosis; M85.89 Other specified disorders of bone density and structure, multiple sites; J84.10 Pulmonary fibrosis, unspecified; R91.1 Solitary pulmonary nodule; F17.210 Nicotine dependence, cigarettes, uncomplicated; I25.10 Atherosclerotic heart disease of native coronary artery without angina pectoris; Z78.0 Asymptomatic menopausal state
CPT/HCPCS: 77080

== ENCOUNTER → 2020-01-13 | Outpatient (CLI) | payer MEDICARE, OTHER ==
--- NOTE | 2020-01-13 10:11 | Diagnostic Imaging Report ---
INDICATION: Routine screening. Comparison is made with prior mammogram from 07/30/2018 and 08/29/2016. 2-D and 3-D bilateral screening mammography was performed with CAD. Scattered fibroglandular densities are identified bilaterally. Circumscribed nodular densities in the medial right breast appears stable. There are benign nodular densities in the outer portions of both breasts which appear stable. Scattered benign calcifications are also noted bilaterally. No new mass or malignant-appearing microcalcifications are seen. Axillae are unremarkable. IMPRESSION: BI-RADS Category 2 No mammographic features suspicious for malignancy are identified. ACR BI-RADS Category 2: Benign findings. Result letter will be mailed to the patient. Note: At least 10% of breast cancer is not imaged by mammography. Dictated by: Dictated on workstation # [id number]
== END ==
LOC: RAD 07:21
PROVIDERS: ATTEND Nurse Practitioner Community Health
DX: Z12.31 Encounter for screening mammogram for malignant neoplasm of breast (principal)
CPT/HCPCS: 77067

== ENCOUNTER → 2020-12-09 | Outpatient (CLI) | payer MEDICARE, OTHER ==
[~2020-12-09] MED LIST changes: +CATHETER FLUSH 10 ML SYR IV PRN; +HOLD METFORMIN - RECEIVED CONTRAST 20 ML VIAL IV SCH; +IOHEXOL 350 MG/ML 100 ML (OMNIPAQUE 350) VIAL IV ONE; +NS 100 ML (IVPB) BAG IV ONE
--- NOTE | 2020-12-09 16:27 | Diagnostic Imaging Report ---
EXAMINATION: CT Chest without contrast (lung screening). TECHNIQUE: Multiple contiguous axial images were obtained through the chest without the use of intravenous contrast according to lung cancer screening protocol. All CT scans use one or more of the following dose optimizing techniques: automated exposure control, MA and/or KvP adjustment based on a patient size and exam type, or iterative reconstruction. HISTORY: 50 pack year history of smoking. COMPARISON: 06/11/2019 FINDINGS: There is no edema or pneumonia. No pleural effusion. No pneumothorax. There is a 3 mm right upper lobe nodule. There is no axillary or supraclavicular lymphadenopathy. There is no mediastinal lymphadenopathy. Heart size is normal. There are moderate coronary artery calcifications. No pericardial effusion. Aorta is normal in caliber. Limited views of the upper abdomen are unremarkable. There are no suspicious osseous lesions. IMPRESSION: 1. No suspicious pulmonary nodules. LUNG-RADS CATEGORY: 2 MODIFIER: None. Dictated by: Dictated on workstation # [id number]
== END ==
LOC: RAD 16:15
PROVIDERS: ATTEND Nurse Practitioner Family
DX: F17.210 Nicotine dependence, cigarettes, uncomplicated (principal)
CPT/HCPCS: 71271

== ENCOUNTER 2021-06-09 16:02 | Emergency (ER) | payer MEDICARE, OTHER ==
[~2021-06-09] VITALS: Ht 157 cm; Wt 72.0 kg
[~2021-06-09 16:02] MED LIST changes: -CATHETER FLUSH 10 ML SYR IV PRN; -HOLD METFORMIN - RECEIVED CONTRAST 20 ML VIAL IV SCH; -IOHEXOL 350 MG/ML 100 ML (OMNIPAQUE 350) VIAL IV ONE; -NS 100 ML (IVPB) BAG IV ONE
[2021-06-09] MEDS ORDERED: cloNIDine 0.1 MG (CATAPRES) TAB PO ONE (16:45)
--- NOTE | 2021-06-09 16:53 | ED Cardiac General ---
History of Present Illness General Chief Complaint: Cardiac/General Problems Stated Complaint: HIGH BLOOD PRESSURE Nursing Triage Note: SENT OVER FROM [facility] FOR HYPERTENSION. DENIES CHEST PAIN. TAKES LISINOPRIL. Source: patient Exam Limitations: no limitations (ADRIANA VASQUES APRN) History of Present Illness Date Seen by Provider: Jun 09, 2021 Time Seen by Provider: 16:51 Initial Comments Sent to ER by [facility] with reports of asymptomatic hypertension. She felt a little "off" this morning but cannot elaborate. No headache no chest pain no shortness of breath no nausea. That was at about 10 AM when her blood pressure was 214/90. She takes lisinopril 10 mg daily. At the time of arrival to ER she is asymptomatic as she has been for a couple of hours now. Blood pressure is still high at about 200/90. Timing/Duration: changing over time Severity: moderate Location: central Prior CP/Workup: no prior chest pain NTG SL FLAT CUTTER: No ASA po FLAT CUTTER: No Associated Systoms: Denies Symptoms (ADRIANA VASQUES APRN) Allergies and Home Medications Allergies Coded Allergies: No Known Drug Allergies (Unverified , 01/15/18) Home Medications Fluoxetine HCl 20 Mg Capsule, 20 MG PO DAILY, (Reported) Levothyroxine Sodium 100 Mcg Tablet, 100 MCG PO DAILY, (Reported) Patient Home Medication List Home Medication List Reviewed: Yes (ADRIANA VASQUES APRN) Review of Systems Review of Systems Constitutional: see HPI; No chills, No fever EENTM: No Symptoms Reported Respiratory: No Symptoms Reported Cardiovascular: No Symptoms Reported Gastrointestinal: No Symptoms Reported Genitourinary: No Symptoms Reported Musculoskeletal: no symptoms reported Skin: no symptoms reported Psychiatric/Neurological: No Symptoms Reported Endocrine: No Symptoms Reported Hematologic/Lymphatic: No Symptoms Reported (ADRIANA VASQUES APRN) Past [id number]-[id number]-Jaawnn Hx Patient Social History Tobacco Use?: Yes Smoking Status: Current Everyday Smoker Substance use?: No Alcohol Use?: No (ADRIANA VASQUES APRN) Immunizations Up To Date Second COVID19 Vaccination Riley: Oct (ADRIANA VASQUES APRN) Seasonal Allergies Seasonal Allergies: No (ADRIANA VASQUES APRN) Past Medical History Surgeries: Yes Hysterectomy Respiratory: No Cardiac: 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 0.0oz. 113.868917ft; 29.00 BMI Method: General Appearance: No Apparent Distress, WD/WN, Other (Alert and oriented GCS 15 very pleasant no distress denies headache denies chest pain denies shortness of breath denies nausea denies abdominal pain denies any symptom whatsoever.) Neck: Full Range of Motion, Normal Inspection Respiratory: No Accessory Muscle Use, No Respiratory Distress Cardiovascular: Regular Rate, Rhythm, Normal Peripheral Pulses Gastrointestinal: Normal Bowel Sounds, Non Tender, Soft Extremity: Normal Capillary Refill, Normal Inspection Neurologic/Psychiatric: Alert, Oriented x3, Abnormal Cerebellar Tests Skin: Normal Color, Warm/Dry (ADRIANA VASQUES APRN) Progress/Results/Core Measures Results/Orders Lab Results Laboratory Tests Test 06/09/21 16:23 Range/Units White Blood Count 6.2 4.3-11.0 10^3/uL Red Blood Count 4.40 3.80-5.11 10^6/uL Hemoglobin 13.8 11.5-16.0 g/dL Hematocrit 41 35-52 % Mean Corpuscular Volume 94 80-99 fL Mean Corpuscular Hemoglobin 31 25-34 pg Mean Corpuscular Hemoglobin Concent 33 32-36 g/dL Red Cell Distribution Width 13.0 10.0-14.5 % Platelet Count 189 130-400 10^3/uL Mean Platelet Volume 11.3 9.0-12.2 fL Immature Granulocyte % (Auto) 0 % Neutrophils (%) (Auto) 59 42-75 % Lymphocytes (%) (Auto) 31 12-44 % Monocytes (%) (Auto) 7 0-12 % Eosinophils (%) (Auto) 2 0-10 % Basophils (%) (Auto) 1 0-10 % Neutrophils # (Auto) 3.7 1.8-7.8 10^3/uL Lymphocytes # (Auto) 1.9 1.0-4.0 10^3/uL Monocytes # (Auto) 0.5 0.0-1.0 10^3/uL Eosinophils # (Auto) 0.1 0.0-0.3 10^3/uL Basophils # (Auto) 0.0 0.0-0.1 10^3/uL Immature Granulocyte # (Auto) 0.0 0.0-0.1 10^3/uL Sodium Level 136 135-145 MMOL/L Potassium Level 3.7 3.6-5.0 MMOL/L Chloride Level 100 98-107 MMOL/L Carbon Dioxide Level 26 21-32 MMOL/L Anion Gap 10 5-14 MMOL/L Blood Urea Nitrogen 11 7-18 MG/DL Creatinine 0.70 0.60-1.30 MG/DL Estimat Glomerular Filtration Rate 83 BUN/Creatinine Ratio 16 Glucose Level 87 70-105 MG/DL Calcium Level 9.3 8.5-10.1 MG/DL Corrected Calcium 9.1 8.5-10.1 MG/DL Total Bilirubin 0.6 0.1-1.0 MG/DL Aspartate Amino Transf (AST/SGOT) 18 5-34 U/L Alanine Aminotransferase (ALT/SGPT) 9 0-55 U/L Alkaline Phosphatase 51 40-136 U/L Total Protein 7.4 6.4-8.2 GM/DL Albumin 4.3 3.2-4.5 GM/DL (NI FOY MD) Medications Given in ED Current Medications Medications Dose Ordered Sig/Jesús Route Start Time Stop Time Status Last Admin Dose Admin Clonidine HCl 0.1 mg ONCE ONCE PO 06/09/21 16:45 06/09/21 16:46 DC 06/09/21 16:40 0.1 MG (NI FOY MD) Vital Signs/I&O 06/09/21 06/09/21 16:12 18:03 Temp 36.2 Pulse 76 67 Resp 16 16 B/P (MAP) 201/81 (121) 179/83 Pulse Ox 96 98 O2 Delivery Room Air Room Air (NI FOY MD) Blood Pressure Mean: 121 Departure Impression Primary Impression: High blood pressure Disposition: 01 HOME, SELF-CARE Condition: Stable Departure-Patient Inst. Decision time for Depature: 16:53 (ADRIANA VASQUES APRN) Referrals: MIRYAM JUAREZ DO (PCP) Primary Care Physician PAIGE SWARTZ (Family) Primary Care Physician Patient Instructions: High Blood Pressure (DC) Add. Discharge Instructions: Double your lisinopril up to 20 mg daily. Follow-up with Dr. Chatman later this week for recheck. All discharge instructions reviewed with patient and/or family. Voiced understanding. ATTENDING PHYSICIAN NOTE: I was physically present as attending physician in the emergency department during the care of this patient, but I was not directly involved in the decision making or delivery of care for this patient. (NI FOY MD) ADRIANA VASQUES APRN Jun 09, 2021 16:53 NI FOY MD Jun 09, 2021 22:58
[2021-06-09 17:09] LABS: BASOPHILS % (AUTO) 1 % (0-10); EOSINOPHILS # (AUTO) 0.1 10^3/uL (0.0-0.3); EOSINOPHILS % (AUTO) 2 % (0-10); HEMATOCRIT 41 % (35-52); HEMOGLOBIN 13.8 g/dL (11.5-16.0); LYMPHOCYTES # (AUTO) 1.9 10^3/uL (1.0-4.0); LYMPHOCYTES % (AUTO) 31 % (12-44); MEAN CORPUSCULAR HEMOGLOBIN 31 pg (25-34); MEAN CORPUSCULAR HGB CONC 33 g/dL (32-36); MEAN CORPUSCULAR VOLUME 94 fL (80-99); MEAN PLATELET VOLUME 11.3 fL (9.0-12.2); MONOCYTES # (AUTO) 0.5 10^3/uL (0.0-1.0); MONOCYTES % (AUTO) 7 % (0-12); NEUTROPHILS # (AUTO) 3.7 10^3/uL (1.8-7.8); NEUTROPHILS % (AUTO) 59 % (42-75); PLATELET COUNT 189 10^3/uL (130-400); WHITE BLOOD COUNT 6.2 10^3/uL (4.3-11.0)
[2021-06-09 17:11] LABS: ALBUMIN 4.3 GM/DL (3.2-4.5); POTASSIUM 3.7 MMOL/L (3.6-5.0)
[2021-06-09 17:12] LABS: CALCIUM 9.3 MG/DL (8.5-10.1)
[2021-06-09 17:13] LABS: TOTAL PROTEIN 7.4 GM/DL (6.4-8.2)
[2021-06-09 17:15] LABS: BILIRUBIN,TOTAL 0.6 MG/DL (0.1-1.0)
[2021-06-09 17:17] LABS: CREATININE SERUM 0.7 MG/DL (0.60-1.30)
[2021-06-09 18:03] VITALS: BP 179/83
== END 2021-06-09 18:03 | disposition home or self-care (01) ==
LOC: EDUNIT# 16:02 → ER 16:04
DX: I10 Essential (primary) hypertension (principal); E03.9 Hypothyroidism, unspecified; F17.200 Nicotine dependence, unspecified, uncomplicated; Z79.890 Hormone replacement therapy
CPT/HCPCS: 36415; 80053; 85025